=== PATIENT | female | born 1975 | race Caucasian/White ===

== ENCOUNTER 2016-03-21 20:47 | Emergency (ER) | payer OTHER ==
[~2016-03-21] VITALS: Ht 167.6 cm; Wt 73.0 kg
[~2016-03-21 20:47] MED LIST: LEVOIUD INT UTER; NITR-5 PO; OMEP20CA9 PO; OXYC-57 PO
[2016-03-21 20:54] VITALS: TEMP 36.4; Ht 167.6 cm; Wt 73.0 kg
[2016-03-21] MEDS ORDERED: QUET1TAB9 PO (21:18)
[2016-03-21] MEDS ORDERED: VNTHFA/IN INH (21:18)
[2016-03-21] MEDS ORDERED: PRED10TA (21:18)
[2016-03-21] MEDS ORDERED: LXP10 PO (21:18)
[2016-03-21] MEDS ORDERED: MEDR1INJ3 IM (21:21)
[2016-03-21] MEDS ORDERED: ACET-1256 PO (21:21)
[2016-03-21] MEDS ORDERED: IBUP-103 PO (21:21)
--- NOTE | 2016-03-21 22:44 | DIAGNOSTIC IMAGING REPORT ---
LUMBAR SPINE 5 VIEWS CLINICAL HISTORY: Chronic low back pain. FINDINGS: 5 views of the lumbar spine are compared to study dated 03/11/2014. The skeletal structures are well mineralized. There is no radiographic evidence of fracture or malalignment. Vertebral body height and alignment are maintained. The transverse and spinous processes are intact. There is no evidence of spondylolysis. The intervertebral disc spaces are well-maintained. The visualized bony pelvis appears intact. There is a nonobstructed abdominal bowel gas pattern. There is moderate colonic fecal retention. Cholestatic clips are seen in the right upper quadrant. IMPRESSION: 1. Unremarkable radiographic evaluation of the lumbosacral spine. 2. Moderate constipation. Electronically signed by: Fitz Zambrano M.D. 03/21/2016 10:42 PM Dictated Date/Time: 03/21/2016 10:41 PM
[2016-03-21] MEDS ORDERED: NORCO 5/325MG HOME PACK PO ONE (22:45)
[2016-03-21] MEDS ORDERED: HYDR-5688 PO (22:51)
[2016-03-21 22:55] VITALS: BP 154/91; PULSE 64; O2SAT 100
--- NOTE | 2016-03-22 15:01 | EMERGENCY ROOM VISIT NOTE ---
ED Visit Note First contact with patient: 21:05 Chief Complaint: Low back pain. History of Present Illness: Ms. Stnaton is a 41-year-old white female who ambulates into the ED complaining of lumbar back pain. Historically patient reports she has a history of chronic back pain and has been diagnosed with lumbar disc normal. She has been previously seen by surgery and pain management. She reports for the last few years she has been tolerating her pain easily at home with [id number] medications. She reports approximately one week ago she developed an upper respiratory tract symptoms including violent coughing and started experiencing lumbar back pain. She was seen by her primary care provider who gave her a short dose of narcotics approximately 6 days ago and was feeling better. She goes on to report approximately 3 days ago she slipped and fell while walking on ice and twisted her back. Since the fall her pain as severe. Currently she describes her pain as a stabbing sensation over the L5-S1 area with prominence on the left. She rates her discomfort 6/10. She does have radiation of pain down the posterior aspect of the left leg. Her pain worsens with all movement of the back, palpation, ambulation. She has not identified any alleviating factors related to the pain. She reports she has been using ibuprofen without relief of her discomfort. Associated with her pain she does report she has a mild tingling sensation throughout the entire left leg but no weakness. Additionally she denies at the time of the injury that she struck her head or have loss of consciousness and has had no signs of head injury, she denies fevers, chills, sweats, skin eruptions, abdominal pain, nausea, vomiting, diarrhea, constipation, rectal bleeding, black/tarry stools, urinary symptoms, hematuria, flank pain, genital/rectal paresthesias, bowel and bladder dysfunction, IV drug abuse, previous back surgeries, history of cancers. . Review of Systems: As noted above in history of present illness. All body systems were reviewed and found to be negative as noted above. Past Medical History: As noted above, GERD, bronchitis, status post cholecystectomy. Current Medications: Home Meds and Scripts Medications Dose Route/Sig Max Daily Dose Days Date Category Dose Instructions Depo-Provera Contraceptiv (Medroxyprogesterone Acetate (C) 150 Mg/Ml Inj 150 Mg IM UD 03/21/16 Reported Seroquel (Quetiapine Fumarate) 100 Mg Tab 100 Mg PO HS 03/21/16 Reported Escitalopram Oxalate 10 Mg Tab 10 Mg PO QAM 03/21/16 Reported Ventolin Hfa (Albuterol) 200 Puffs/13640 Mcg Aers 2 Puffs INH QID 03/21/16 Reported Prednisone 10 Mg Tab 03/21/16 Reported PRESCRIBED 03/14/2015 FOLLOWS: TAKE 5 TABLETS (50 MG) DAILY FOR 2 DAYS THEN, TAKE 4 TABLETS (40 MG) DAILY FOR 2 DAYS THEN, TAKE 3 TABLETS (30 MG) DAILY FOR 2 DAYS THEN, TAKE 2 TABLETS (20 MG) DAILY FOR 2 DAYS THEN, TAKE 1 TABLET (10 MG) DAILY FOR 2 DAYS. Tylenol (Acetaminophen) 500 Mg Tab 1,000 Mg PO Q6H PRN 11/11/15 Reported Advil (Ibuprofen) 200 Mg Tab 400 Mg PO Q6H PRN 11/11/15 Reported Prilosec (Omeprazole) 20 Mg Cap 20 Mg PO DAILY 01/29/15 Reported TAKE THIS MEDICATION ONE HOUR BEFORE FIRST MEAL OF THE DAY Allergies to Medications: Gabapentin, latex, penicillin, propoxyphene and tramadol. Social History: Patient is not employed; she feels safe in her home environment ; she admits to tobacco use and denies alcohol use. Physical Examination: Vital Signs: Date Time Temp Pulse Resp B/P Pulse Ox O2 Delivery O2 Flow Rate FiO2 03/21/16 22:55 64 16 154/91 100 Room Air 03/21/16 20:54 36.4 109 18 134/86 98 Room Air GENERAL: 41-year-old female in moderate distress due to pain, nontoxic-appearing , afebrile and hemodynamically stable. NEUROLOGICAL: Awake, alert and oriented to person, place and time. Answering questions appropriately and following commands. She is using a shuffling gait to control pain. Good hand eye coordination. No focal motor or sensory deficits. SKIN: Warm, dry and pink. No soft tissue eruptions or trauma noted. HEENT: Atraumatic and normocephalic. PERRLA. Sclera white and conjunctiva pink. No drainage from naris. Pharynx is nonerythematous or edematous. Speech normal. No lymphadenopathy. Trachea midline. No jugular venous distention. BACK: No tenderness over the bony cervical and thoracic spine. Moderate tenderness over the L4 through S1 area of the bony spine without bony deformity , bony crepitus, step-offs, swelling or ecchymosis. There is also mild tenderness in the left paraspinous lumbar muscles in the same location without palpable spasm. Decreased range of motion in all movements at the waist due to pain. Negative straight leg raise test. No CVA tenderness. THORAX: Lungs sounds are clear to auscultation and equal bilaterally with symmetrical chest wall. ABDOMEN: Flat, soft and nontender. Positive bowel sounds in all quadrants. No guarding, rigidity or organomegaly. EXTREMITIES: Moves all extremities well on command and with purpose. All distal neurovascular statuses are intact and equal bilaterally. No calf tenderness or cords. 2+ patellar and Achilles deep tendon reflexes intact and equal bilaterally. 4/5 muscle strength in hip flexion, extension, abduction and abduction, knee flexion and extension and ankle plantar flexion and dorsiflexion. She was able to distinguish light sensations through all dermatomes of the lower legs and feet bilaterally. ED Course: Patient is assessed as noted above. Lumbar Spine X-Rays: Were read by myself and the radiologist and shows no evidence of fracture or malalignment. Vertebral body height and alignment are maintained. Interval discs spaces are well maintained. Nonobstructive bowel gas pattern. Moderate colonic fecal retention. Patient was educated about tonight's findings and instructed on treatment plan; she verbalizes understanding and agreement with this plan. Patient's information was ran to the [place] database and no red flags for overuse or abuse of narcotics were noted. Clinical Impression: Lumbar back pain with left-sided radiculopathy. Status post fall. Disposition: Patient discharged home in stable condition; prior to departure she was reassessed and subjectively reported she was feeling slightly worse and rated her discomfort 8/10. Plan: Comfort measures were discussed with the patient including rest, ice, proper lifting and moving techniques and a sliding pain medication scale of ibuprofen, acetaminophen and [place]; appropriate precautions were discussed with the patient. Patient was encouraged to follow-up with her PCP or back specialist for definitive care and treatment. Patient is encouraged return ED for worsening/uncontrolled, leg weakness/ numbness, bowel and bladder dysfunction, genital paresthesias, fevers or any new /concerning symptoms.
== END 2016-03-21 22:55 | disposition home or self-care (01) ==
LOC: C.EDB 20:50 → C.EDD 22:55
DX: M54.16 Radiculopathy, lumbar region (principal); W19.XXXA Unspecified fall, initial encounter; K21.9 Gastro-esophageal reflux disease without esophagitis; Z90.49 Acquired absence of other specified parts of digestive tract

== ENCOUNTER 2016-06-27 20:31 | Emergency (ER) | payer OTHER ==
[~2016-06-27] VITALS: Ht 170.2 cm; Wt 79.4 kg
[~2016-06-27 20:31] MED LIST changes: +ACET-1256 PO; +HYDR-5688 PO; +IBUP-103 PO; -LEVOIUD INT UTER; +LXP10 PO; +MEDR1INJ3 IM; -NITR-5 PO; -OXYC-57 PO; +PRED10TA; +QUET1TAB9 PO; +VNTHFA/IN INH
[2016-06-27 21:00] VITALS: TEMP 36.9; Ht 170.2 cm; Wt 79.4 kg
[2016-06-27] MEDS ORDERED: CLIN300C2 PO (21:58)
[2016-06-27] MEDS ORDERED: HYDR-5688 PO (21:58)
[2016-06-27] MEDS ORDERED: CLINDAMYCIN 150MG HOME PACK PO ONE (22:00)
[2016-06-27] MEDS ORDERED: NORCO 5/325MG HOME PACK PO ONE (22:00)
--- NOTE | 2016-06-27 22:02 | EMERGENCY ROOM VISIT NOTE ---
ED Visit Note First contact with patient: 21:49 CHIEF COMPLAINT: Toothache HISTORY OF PRESENT ILLNESS: This 41-year-old female patient presented to the emergency department ambulatory with a progressive toothache for past 1 month, worsening over the past 2 days. The patient believes it is coming from her left lower wisdom tooth. She believes the tooth may be infected. The pain is now steady and severe and radiates to the face. The patient has a dentist appointment set up at the end of the month to have the tooth extracted. They rate their pain an 8/10 and the ibuprofen and Tylenol they have been taking has not relieved the pain. Denies facial swelling or fever. The patient denies any discharge from the mouth. REVIEW OF SYSTEMS: A 6 system review of systems was completed with positives and pertinent negatives listed in the HPI. ALLERGIES: See EMR MEDICATIONS: See med list PMH: Asthma, cholecystectomy SOCIAL HISTORY: The patient lives locally with family. PHYSICAL EXAM: Vitals are noted on the nurse's note and reviewed by myself. Vital signs stable. Temperature 36.9C orally. GENERAL: This is a 41-year-old female, in no acute distress, nondiaphoretic, well-developed well-nourished. Mouth: The left back molar is carious and the gum is swollen and tender around it, without any discharge or signs of an abscess. The remainder of the pharynx and tonsils are without erythema, edema, or exudate. The airway is patent. There is no facial swelling, cervical or submandibular lymphadenopathy. The patient appears uncomfortable and in pain. The patient has overall poor dental hygiene. EARS: External auditory canals clear, tympanic membranes pearly ha[place]on without erythema or effusion bilaterally. ED COURSE: The patient was evaluated as above. She will be placed on an antibiotic pending her appointment with the oral surgeon. She will be kept in a very short course of [place], but she was instructed to follow-up with her primary care provider or dentist for any further pain control. The PDMP was reviewed. The patient has received a few narcotic prescriptions in the past year, but nothing excessive. Conservative measures were discussed. She verbalized understanding of my assessment and treatment plan and was discharged home in good condition. DIAGNOSIS: Odontalgia Problem List Medical Problems: (1) Abdominal pain Status: Resolved (2) ASTHMA, UNSPECIFIED Status: Chronic (3) BIPOLAR DISORDER, UNSPECIFIED Status: Chronic (4) Bronchitis Status: Resolved (5) Bronchitis Status: Resolved (6) ESOPHAGEAL REFLUX Status: Chronic (7) Fall due to slipping on ice or snow Status: Resolved (8) HEADACHE Status: Resolved (9) Hepatitis C Status: Chronic (10) Influenza B Status: Resolved (11) Influenza B Status: Resolved (12) Low back pain Status: Resolved (13) Lumbar contusion Status: Resolved (14) Migraine headache Status: Resolved (15) Nausea & vomiting Status: Resolved (16) Ovarian cyst Status: Resolved (17) PERSONAL HISTORY OF PEPTIC ULCER DISEASE Status: Chronic (18) Pharyngitis Status: Resolved (19) Right ovarian cyst Status: Resolved (20) Right ovarian cyst Status: Resolved (21) Sore throat Status: Resolved (22) Throat pain in adult Status: Resolved (23) URI, acute Status: Resolved (24) Work related injury Status: Resolved Surgical Problems: (1) Cholecystectomy Status: Resolved Current/Historical Medications Scheduled Albuterol Hfa (Ventolin Hfa), 2 PUFFS INH QID Clindamycin Hcl (Cleocin), 300 MG PO QID Escitalopram Oxalate (Escitalopram Oxalate), 10 MG PO QAM Medroxyprogesterone Acetate (C (Depo-Provera Contraceptiv), 150 MG IM UD Omeprazole (Prilosec), 20 MG PO DAILY Quetiapine Fumarate (Seroquel), 100 MG PO HS Scheduled PRN Acetaminophen (Tylenol), 1,000 MG PO Q6H PRN for Pain Hydrocodone/Acetaminophen 5MG/325MG ([place] 5MG/325MG), 1-2 TABLET PO Q6H PRN for Pain Hydrocodone/Acetaminophen 5MG/325MG ([place] 5MG/325MG), 1-2 TABLET PO Q4H PRN for Pain Ibuprofen Tab (Advil), 400 MG PO Q6H PRN for Pain Miscellaneous Medications Prednisone (Prednisone) Allergies Coded Allergies: Gabapentin (Verified Allergy, Unknown, Nausea/Vomiting, 11/11/15) Latex1 -Allergic Contact Dermititis (Verified Allergy, Unknown, RASH, 11/10) Penicillins (Verified Allergy, Unknown, ., 11/11/15) Tramadol (Verified Adverse Reaction, Intermediate, N/V, 11/11/15) Propoxyphene (Verified Adverse Reaction, Mild, NAUSEA AND VOMITING, ) Vital Signs Date Time Temp Pulse Resp B/P Pulse Ox O2 Delivery O2 Flow Rate FiO2 06/27/16 22:34 81 18 144/88 98 Room Air 06/27/16 21:00 36.9 87 19 141/87 97 Room Air Medications Administered Medications (Trade) Dose Ordered Sig/Herbert Route Start Time Stop Time Status Last Admin Dose Admin Clindamycin HCl (Cleocin 150MG Home Pack) 1 homepack UD ONCE PO 06/27/16 22:00 06/27/16 22:01 DC 06/27/16 22:30 1 HOMEPACK Acetaminophen/ Hydrocodone Bitart ([place] 5/325mg Home Pack) 1 homepack UD ONCE PO 06/27/16 22:00 06/27/16 22:01 DC 06/27/16 22:31 1 HOMEPACK Departure Information Impression Primary Impression: Dental caries Dispostion Home / Self-Care Condition GOOD Prescriptions Hydrocodone/Acetaminophen 5MG/325MG ([place] 5MG/325MG) Tab 1-2 TABLET PO Q4H Y for Pain, #8 TAB For Initial Treatment Prov: Julia Dodge PA-C 06/27/16 Clindamycin Hcl (CLEOCIN) 300 Mg Cap 300 MG PO QID for 10 Days, #40 CAP Prov: Julia Dodge PA-C 06/27/16 Referrals No Doctor, Assigned (PCP) Patient Instructions [facility] Additional Instructions You have been treated in the Emergency Department for Dental Pain. You have been prescribed [place] to be used for pain control. This is a narcotic medication. You cannot drive or consume alcohol while on this medicine. This medicine should only be used for pain that cannot be controlled with over-the- counter pain medicines. You were prescribed, clindamycin to be taken 4 times daily as prescribed. This is an antibiotic. All antibiotics have the potential to cause diarrhea. Stop this medication and contact a medical provider if you were to develop any significant adverse side effects including: wheezing, shortness of breath, passing out, vomiting, or a diffuse rash. Always take antibiotics as directed and COMPLETE the ENTIRE course regardless of the improvement of your symptoms. For pain control, you can use the following [id number] medicines (if >12 yo): - Regular strength (325mg/tab) Tylenol (acetaminophen) 2 tabs every 4-6 hours as needed. Do not exceed 12 tablets in a 24 hour period. Avoid taking more than 4 grams (4000 mg) of Tylenol per day. This includes any other sources of acetaminophen you may take on a regular basis. - Regular strength (200 mg/tab) Advil (ibuprofen) 1-2 tabs every 4-6 hours as needed. Do not exceed a dose of 3200 mg per day. Refrain from smoking cigarettes or using chewing tobacco until you have been evaluated by your dentist. Keeping beverages lukewarm and consuming soft foods can decrease your pain. Warm compresses over the affected area may offer some relief. You MUST seek evaluation of your dental pain by a dentist following your visit to the Emergency Department. The Emergency Department is not capable of treating dental issues long-term. You should call your dentist as soon as possible to make an appointment for evaluation of your dental pain. Return to the emergency department if you develop the following symptoms despite treatment course outlined above: fever, intractable pain, increased redness, swelling, or purulent discharge.
[2016-06-27 22:34] VITALS: BP 144/88; PULSE 81; O2SAT 98
== END 2016-06-27 22:36 | disposition home or self-care (01) ==
LOC: C.EDB 20:32 → C.EDD 22:36
DX: K02.9 Dental caries, unspecified (principal); J45.909 Unspecified asthma, uncomplicated; Z90.49 Acquired absence of other specified parts of digestive tract; F31.9 Bipolar disorder, unspecified; K21.9 Gastro-esophageal reflux disease without esophagitis; B19.20 Unspecified viral hepatitis C without hepatic coma; Z79.899 Other long term (current) drug therapy

== ENCOUNTER 2016-08-21 22:15 | Emergency (ER) | payer OTHER ==
[~2016-08-21] VITALS: Ht 167.6 cm; Wt 81.9 kg
[2016-08-21 22:18] VITALS: TEMP 36.9; Ht 167.6 cm; Wt 81.9 kg
[2016-08-21] MEDS ORDERED: ESCI1TAB6 PO (22:33)
[2016-08-21] MEDS ORDERED: SRQ/200 PO (22:33)
[2016-08-21] MEDS ORDERED: CLIN300C2 PO (22:41)
[2016-08-21] MEDS ORDERED: OXYC1TAB3 PO (22:41)
[2016-08-21] MEDS ORDERED: CLINDAMYCIN 150MG HOME PACK PO ONE (22:45)
[2016-08-21] MEDS ORDERED: OXYCODONE IR HOME PACK PO ONE (22:45)
[2016-08-21 22:57] VITALS: BP 135/83; PULSE 87; O2SAT 98
--- NOTE | 2016-08-22 02:57 | EMERGENCY ROOM VISIT NOTE ---
History First contact with patient: 22:26 Chief Complaint: DENTAL PAIN Stated Complaint: RT FRONT TOOTH ABCESSED Nursing Triage Summary: abcess on bottom gums-pain started yesterday History of Present Illness The patient is a 41 year old female who presents to the Emergency Room with complaints of dental pain for the past few days who is going to call her dentist tomorrow. Patient discussed pain as aching, ranging in severity 7 out of 10 worse with chewing better with rest. No relief with Orajel. Patient denies chest pain, dyspnea, fever, chills, facial swelling, dysphagia, sore throat, neck stiffness, headache, cough, congestion. She is tolerating by mouth fluids and food. Review of Systems See HPI for pertinent positives & negatives. A total of 10 systems reviewed and were otherwise negative. Past Medical/Surgical History Medical Problems: (1) Abdominal pain (2) ASTHMA, UNSPECIFIED (3) BIPOLAR DISORDER, UNSPECIFIED (4) Bronchitis (5) Bronchitis (6) ESOPHAGEAL REFLUX (7) Fall due to slipping on ice or snow (8) HEADACHE (9) Hepatitis C (10) Influenza B (11) Influenza B (12) Low back pain (13) Lumbar contusion (14) Migraine headache (15) Nausea & vomiting (16) Ovarian cyst (17) PERSONAL HISTORY OF PEPTIC ULCER DISEASE (18) Pharyngitis (19) Right ovarian cyst (20) Right ovarian cyst (21) Sore throat (22) Throat pain in adult (23) URI, acute (24) Work related injury Surgical Problems: (1) Cholecystectomy Family History Diabetes mellitus FH: cancer Kidney disease Kidney stones Social History Smoking Status: Current Every Day Smoker Alcohol Use: none Marital Status: single Housing Status: lives alone Occupation Status: employed Current/Historical Medications Scheduled Albuterol Hfa (Ventolin Hfa), 2 PUFFS INH QID Clindamycin Hcl (Cleocin), 300 MG PO QID Escitalopram Oxalate (Escitalopram Oxalate), 10 MG PO QAM Escitalopram Oxalate (Lexapro), 5 MG PO DAILY Omeprazole (Prilosec), 20 MG PO DAILY Quetiapine Fumarate (Seroquel), 1 TAB PO HS Scheduled PRN Acetaminophen (Tylenol), 1,000 MG PO Q6H PRN for Pain Ibuprofen Tab (Advil), 400 MG PO Q6H PRN for Pain Oxycodone Immediate Rel Tab (Roxicodone Ir), 1-2 TAB PO Q4H PRN for Severe Pain Allergies Coded Allergies: Gabapentin (Verified Allergy, Unknown, Nausea/Vomiting, 08/21/16) Latex1 -Allergic Contact Dermititis (Verified Allergy, Unknown, RASH, 08/21) Penicillins (Verified Allergy, Unknown, ., 08/21/16) Tramadol (Verified Adverse Reaction, Intermediate, N/V, 08/21/16) Propoxyphene (Verified Adverse Reaction, Mild, NAUSEA AND VOMITING, ) Physical Exam Vital Signs Date Time Temp Pulse Resp B/P (MAP) Pulse Ox O2 Delivery O2 Flow Rate FiO2 08/21/16 22:57 87 16 135/83 98 08/21/16 22:18 36.9 87 18 118/83 95 Room Air Pain Rating (0-10): 8.0 Physical Exam VITALS: Vitals are noted on the nurse's note and reviewed by myself. Vital signs stable. GENERAL: Pleasant female, in no acute distress, nondiaphoretic, well-developed well-nourished. SKIN: The skin was without rashes, erythema, edema, or bruising. There is no tenting of the skin. Capillary reflex less than 2 seconds. HEAD: Normocephalic atraumatic. EARS: External auditory canals clear, tympanic membranes pearly hairston without erythema or effusion bilaterally. EYES: Pupils equal round and reactive to light and accommodation. Conjunctivae without injection, sclerae without icterus. Extraocular movements intact. NOSE: Patent, turbinates without inflammation or discharge. No sinus tenderness. MOUTH: Mucous membranes moist. No Qasim's angina Pharynx without erythema or exudate. Uvula midline. Airway patent. Tongue does not deviate. Dental exam: Extensive plaque buildup with minimal dental decay with no palpable abscess with a few missing teeth NECK: Supple without nuchal rigidity. No lymphadenopathy. No thyromegaly. Cervical spine is nontender. No JVD. No meningeal signs HEART: Regular rate and rhythm without murmurs gallops or rubs. LUNGS: Clear to auscultation bilaterally without wheezes, rales or rhonchi. No dullness to percussion. No retractions or accessory muscle use. ABDOMEN: Positive bowel sounds x 4. Normal tympanic percussion. Soft, nontender, without masses or organomegaly. Baptiste sign negative. No guarding or rebound tenderness. MUSCULOSKELETAL: No muscle atrophy, erythema, or edema noted. NEURO: Patient was alert and oriented to person place and time. Normal sensation to light and sharp touch. No focal neurological deficits. Medical Decision & Procedures Medications Administered Medications (Trade) Dose Ordered Sig/Herbert Route Start Time Stop Time Status Last Admin Dose Admin Clindamycin HCl (Cleocin 150MG Home Pack) 1 homepack UD ONCE PO 08/21/16 22:45 08/21/16 22:46 DC 08/21/16 22:56 1 HOMEPACK Oxycodone HCl (Roxicodone Immediate Rel 5MG Home Pack) 1 homepack UD ONCE PO 08/21/16 22:45 08/21/16 22:46 DC 08/21/16 22:55 1 HOMEPACK ED Course Prior records reviewed and summarized as above. Triage Nursing notes reviewed. The patient's history was concerning for dental pain. Differential diagnosis: Etiologies such as cellulitis, abscess, Qasim angina, gingivitis, as well as others were entertained.. Physical examination: The physical examination was consistent with dental pain and dental caries ER treatment provided: Cleocin, home pack of OxyIR On reassessment the patient felt better. Diagnostics interpreted by me: Deferred This appears to be isolated dental pain from dental caries. Patient had no palpable abscess. No signs of Qasim angina. No airway compromise. She was counseled on proper dental hygiene and verbalized understanding of this. She is advised to follow-up with dentistry for definitive care here in the ER sooner for facial swelling, fevers, worsening signs or symptoms or as needed. By the evaluation outlined above emergent etiologies such as abscess, Qasim angina as well as others were deemed relatively unlikely. The pt informed about the findings as listed above. All questions were answered and pleased with the treatment. Return instructions were outlined and the patient was discharged in stable condition. Outpatient prescription management: Cleocin, OxyIR Referral: The patient was referred back to dentist for follow-up in 2 to 3 days for a recheck of the current condition. Medical Decision As above [place] Drug Monitoring Program Search Results: patient reviewed within database, see additional documentation (patient had a few recent narcotic scripts) Impression Primary Impression: Pain, dental Additional Impression: Dental caries Departure Information Dispostion Home / Self-Care Condition FAIR Prescriptions Oxycodone Immediate Rel Tab (ROXICODONE IR) 5 Mg Tab 1-2 TAB PO Q4H Y for Severe Pain, #10 TAB Prov: Aminah James PA-C 08/21/16 Clindamycin Hcl (CLEOCIN) 300 Mg Cap 300 MG PO QID for 10 Days, #40 CAP Prov: Aminah James PA-C 08/21/16 Forms HOME CARE DOCUMENTATION FORM, IMPORTANT VISIT INFORMATION Patient Instructions Visit Dental, [facility] Additional Instructions Clindamycin 150mg: Take one pill 4 times daily for 10 days for your infection. Take with food, but avoid dairy. Avoid prolonged sun exposure since this medication makes you temporarily more susceptible to sunburns. All antibiotics can cause diarrhea. If this occurs and you feel worse or it does not resolve in 1-2 days follow up with your doctor or return to the Emergency Department as this could be signs of serious underlying problems. Any medication can cause an allergic reaction, stop the pills immediately and return to the ER for rash, hives, breathing difficulties, or swelling. Oxycodone (OxyIR) 5mg: Take 1-2 pills every four hours for breakthrough pain. Avoid alcohol, operating machinery or dangerous equipment, working on ladders or roofs, DRIVING, or situations where being under the influence may be dangerous. It is recommended to use an kekk-jnx-xykepsc stool softener such as Colace, 100mg twice daily while taking this medication to avoid constipation. Ibuprofen(Motrin, Advil) may be used for fever or pain. Use 600mg every six hours as needed. Take with food. Avoid using more than 2400mg in a 24 hour period. Do not use 2400mg per day for more than three consecutive days without physician direction. Prolonged inappropriate use can lead to stomach upset or ulcers. This medication can be taken if you need to drive, work, or perform activities which may be dangerous when taking narcotic pain medication. (AND/OR) Acetaminophen(Tylenol) may be used for fever or pain. Use 1000mg every six hours as needed. Avoid using more than 3000mg in a 24 hour period. This medication can be taken if you need to drive, work, or perform activities which may be dangerous when taking narcotic pain medication. [place] teeth twice a day, floss daily and do warm saltwater gargles 3 times a day. See a dentist as soon as possible for definitive care for your dental problem. Return to ER sooner for facial swelling, fever, redness, worsening signs or symptoms or as needed. Problem Qualifiers
== END 2016-08-21 22:58 | disposition home or self-care (01) ==
LOC: C.EDB 22:15 → C.EDC 22:58
DX: K08.89 Other specified disorders of teeth and supporting structures (principal); K02.9 Dental caries, unspecified; F31.9 Bipolar disorder, unspecified; Z79.899 Other long term (current) drug therapy; F17.210 Nicotine dependence, cigarettes, uncomplicated

== ENCOUNTER 2016-12-16 17:24 | Emergency (ER) | payer OTHER ==
[~2016-12-16] VITALS: Ht 170.2 cm; Wt 78.8 kg
[~2016-12-16 17:24] MED LIST changes: +ESCI1TAB6 PO; -HYDR-5688 PO; -MEDR1INJ3 IM; +OXYC1TAB3 PO; -PRED10TA; -QUET1TAB9 PO; +SRQ/200 PO
[2016-12-16 17:29] VITALS: BP 145/90; PULSE 102; TEMP 36.8; O2SAT 95; Ht 170.2 cm; Wt 78.8 kg
[2016-12-16] MEDS ORDERED: CEPH500C2 PO (18:09)
[2016-12-16] MEDS ORDERED: HYDR-5688 PO (18:09)
[2016-12-16] MEDS ORDERED: SULF800T23 PO (18:09)
--- NOTE | 2016-12-17 16:14 | EMERGENCY ROOM VISIT NOTE ---
ED Visit Note First contact with patient: 17:52 Chief Complaint: I think I have a spider bite on my abdomen. History of Present Illness: Ms. Stanton is a 41-year-old white female who ambulates into the ED complaining of a possible spider bite to the abdomen. Patient reports she was camping last week. She reports 6 days ago when she awoke from sleep she noted a small red faby with what she felt was 2 puncture wounds in the left upper quadrant. She reports initially there was no discomfort. Over the last 6 days progressed she has noted some mild redness and in the central portion of the redness there is been a small amount of purulent drainage. She also reports he has noted an increasing amount of pain in the area. She describes the pain as a burning sensation. Her pain worsens with palpation. She rates her discomfort 8/10. She has not identified any alleviating factors related to the pain. She has not taken any medications for pain prior to arrival at the hospital. This did with her pain she reports she feels like she's had a decreased appetite and intermittently she has been having chills but has not the find any ce fever. She reports she has been washing her wound with soap and water. She denies other skin eruptions, skin color changes, headache, dizziness, lightheadedness, neck pain/stiffness, upper respiratory tract symptoms, cough, wheezing, other abdominal pain, nausea, vomiting, back/flank pain. Review of Systems: As noted above in history of present illness. 8 body systems were reviewed and found to be negative as noted above. Past Medical History: Bronchitis, status post cholecystectomy. Current Medications: Prilosec, ibuprofen, Tylenol, albuterol, Lexapro, Seroquel. Allergies to Medications: Penicillin, gabapentin, propoxyphene, tramadol, latex. Social History: Patient is not employed; she feels safe in her home environment ; she admits to tobacco use and denies alcohol use. Physical Examination: Vital Signs: Date Time Temp Pulse Resp B/P (MAP) Pulse Ox O2 Delivery O2 Flow Rate FiO2 12/16/16 17:29 36.8 102 20 145/90 95 Room Air GENERAL: 41-year-old female in mild to moderate distress due to pain, nontoxic- appearing, afebrile and hemodynamically stable. NEUROLOGICAL: Awake, alert and oriented to person, place and time. Answering questions appropriately and following commands. Normal gait. Good hand eye coordination. No focal motor sensory deficits. SKIN: Warm, dry and pink. Abdomen: Over the left upper quadrant patient has a nickel-sized area of erythema and in the central portion of this area there is a 2 mm pustule. No local lymphangitis. No drainage from her wound. HEENT: Atraumatic and normocephalic. THORAX: Lungs sounds are clear to auscultation and equal bilaterally with symmetrical chest wall. ABDOMEN: Soft tissue lesion as noted above. Flat and soft tenderness in the area of her lesion. Although there is erythema there is no warmth around the lesion. This lesion is neither indurated or fluctuant. No palpable abscesses were identified. I did not appreciate any possible bite orosco as noted by the patient. The small pustule is not draining. Positive bowel sounds in all quadrants. No guarding, rigidity or organomegaly. EXTREMITIES: Moves all extremities well on command and with purpose. ED Course: Patient is assessed as noted above. Patient was educated about today's findings and instructed on her treatment plan ; she verbalized understanding and agreement with this plan. Clinical Impression: Skin pustule. Disposition: Patient discharged home in stable condition; prior to departure she was reassessed and subjectively reported she was feeling the same. Plan: Patient was prescribed Keflex 500 mg 4 times a day and Bactrim DS 2 times a day for 10 days. Patient was placed on a sliding pain scale of ibuprofen, acetaminophen and [place] ; she was given appropriate narcotic questions in any was checked in the state database and no red flags were noted. Patient was encouraged to continue to wash this area with soap and water and cover with a small amount of antibiotic dressing. Patient was encouraged use warm compresses over the area 4-5 times a day for 20 minutes. Patient was encouraged not to squeeze or pick at her skin lesion. Patient was educated on signs of worsening infection. Patient was encouraged to follow-up with primary care provider for recheck in 36 -48 hours. Patient was encouraged return ED for worsening/uncontrolled pain, uncontrolled swelling, fevers or any new/concerning symptoms.
== END 2016-12-16 18:21 | disposition home or self-care (01) ==
LOC: C.EDB 17:25 → C.EDD 18:21
DX: L08.9 Local infection of the skin and subcutaneous tissue, unspecified (principal); F17.200 Nicotine dependence, unspecified, uncomplicated

== ENCOUNTER 2017-02-28 03:09 | Emergency (ER) | payer OTHER ==
[~2017-02-28] VITALS: Ht 170.2 cm; Wt 80.1 kg
[~2017-02-28 03:09] MED LIST changes: +HYDR-5688 PO; -LXP10 PO; -OMEP20CA9 PO; -OXYC1TAB3 PO; -VNTHFA/IN INH
[2017-02-28 03:15] VITALS: TEMP 36.4; Ht 170.2 cm; Wt 80.1 kg
[2017-02-28] MEDS ORDERED: OXYCODONE IR HOME PACK PO ONE (03:30)
[2017-02-28] MEDS ORDERED: CLIN150C PO (03:30)
[2017-02-28] MEDS ORDERED: CLINDAMYCIN 150MG HOME PACK PO ONE (03:30)
[2017-02-28] MEDS ORDERED: OXYC-737 PO (03:30)
--- NOTE | 2017-02-28 03:34 | EMERGENCY ROOM VISIT NOTE ---
History First contact with patient: 03:19 Chief Complaint: FACIAL PAIN/INJURY Stated Complaint: LEFT JAW HURTS History of Present Illness The patient is a 42 year old female who presents to the Emergency Room with complaints of left lower jaw and dental pain for the past few days. Patient describes the pain as aching, ranging in severity 7 out of 10 worse with chewing better with rest. It does not radiate. Patient denies chest pain, dyspnea, fever, chills, facial swelling, dysphagia, sore throat, neck stiffness , headache, cough, congestion. She is tolerating by mouth fluids and food. She sees a dentist in [place]. Review of Systems See HPI for pertinent positives & negatives. A total of 10 systems reviewed and were otherwise negative. Past Medical/Surgical History Medical Problems: (1) Abdominal pain (2) ASTHMA, UNSPECIFIED (3) BIPOLAR DISORDER, UNSPECIFIED (4) Bronchitis (5) Bronchitis (6) ESOPHAGEAL REFLUX (7) Fall due to slipping on ice or snow (8) HEADACHE (9) Hepatitis C (10) Influenza B (11) Influenza B (12) Low back pain (13) Lumbar contusion (14) Migraine headache (15) Nausea & vomiting (16) Ovarian cyst (17) PERSONAL HISTORY OF PEPTIC ULCER DISEASE (18) Pharyngitis (19) Right ovarian cyst (20) Right ovarian cyst (21) Sore throat (22) Throat pain in adult (23) URI, acute (24) Work related injury Surgical Problems: (1) Cholecystectomy Family History Diabetes mellitus FH: cancer Kidney disease Kidney stones Social History Smoking Status: Current Every Day Smoker Alcohol Use: none Marital Status: single Housing Status: lives alone Occupation Status: employed Current/Historical Medications Scheduled Albuterol Hfa (Ventolin Hfa), 2 PUFFS INH QID Clindamycin Hcl (Cleocin), 150 MG PO QID Escitalopram Oxalate (Escitalopram Oxalate), 10 MG PO QAM Escitalopram Oxalate (Lexapro), 5 MG PO DAILY Omeprazole (Prilosec), 20 MG PO DAILY Quetiapine Fumarate (Seroquel), 1 TAB PO HS Scheduled PRN Acetaminophen (Tylenol), 1,000 MG PO Q6H PRN for Pain Hydrocodone/Acetaminophen 5MG/325MG ([place] 5MG/325MG), 1-2 TABLET PO Q6H PRN for Pain Ibuprofen Tab (Advil), 400 MG PO Q6H PRN for Pain Oxycodone Immediate Rel Tab (Roxicodone Ir), 1-2 TAB PO Q4H PRN for Severe Pain Physical Exam Vital Signs Date Time Temp Pulse Resp B/P (MAP) Pulse Ox O2 Delivery O2 Flow Rate FiO2 02/28/17 03:15 36.4 82 18 130/75 98 Room Air Physical Exam VITALS: Vitals are noted on the nurse's note and reviewed by myself. Vital signs stable. GENERAL: Pleasant female, in no acute distress, nondiaphoretic, well-developed well-nourished. SKIN: The skin was without rashes, erythema, edema, or bruising. There is no tenting of the skin. Capillary reflex less than 2 seconds. HEAD: Normocephalic atraumatic. EARS: External auditory canals clear, tympanic membranes pearly hairston without erythema or effusion bilaterally. EYES: Pupils equal round and reactive to light and accommodation. Conjunctivae without injection, sclerae without icterus. Extraocular movements intact. NOSE: Patent, turbinates without inflammation or discharge. No sinus tenderness. MOUTH: Mucous membranes moist. No Qasim's angina Pharynx without erythema or exudate. Uvula midline. Airway patent. Tongue does not deviate. Dental exam: Extensive plaque buildup with minimal dental decay with no palpable abscess with a few missing teeth NECK: Supple without nuchal rigidity. No lymphadenopathy. No thyromegaly. Cervical spine is nontender. No JVD. No meningeal signs HEART: Regular rate and rhythm LUNGS: Clear to auscultation bilaterally without wheezes, rales or rhonchi. No dullness to percussion. No retractions or accessory muscle use. ABDOMEN: Positive bowel sounds x 4. Normal tympanic percussion. Soft, nontender, without masses or organomegaly. Baptiste sign negative. No guarding or rebound tenderness. MUSCULOSKELETAL: No muscle atrophy, erythema, or edema noted. NEURO: Patient was alert and oriented to person place and time. Normal sensation to light and sharp touch. No focal neurological deficits. Medical Decision & Procedures ED Course Prior records reviewed and summarized as above. Triage Nursing notes reviewed. The patient's history was concerning for dental pain. Differential diagnosis: Etiologies such as cellulitis, abscess, dental cavity, Qasim angina, gingivitis , as well as others were entertained.. Physical examination: The physical examination was consistent with dental pain and dental caries ER treatment provided: Cleocin, home pack of OxyIR On reassessment the patient felt better. Diagnostics interpreted by me: Deferred This appears to be isolated dental pain from dental caries. Patient had no palpable abscess. No signs of Qasim angina. No airway compromise. She was counseled on proper dental hygiene and verbalized understanding of this. She is advised to follow-up with dentistry for definitive care here in the ER sooner for facial swelling, fevers, worsening signs or symptoms or as needed. By the evaluation outlined above emergent etiologies such as abscess, Qasim angina as well as others were deemed relatively unlikely. The pt informed about the findings as listed above. All questions were answered and pleased with the treatment. Return instructions were outlined and the patient was discharged in stable condition. Outpatient prescription management: Cleocin, OxyIR Referral: The patient was referred back to dentist for follow-up in 2 to 3 days for a recheck of the current condition. Medical Decision As above [place] Drug Monitoring [place] Search Results: patient reviewed within database, see additional documentation (no recent narcotic prescription) Medication Reconcilliation Current Medication List: was personally reviewed by me Blood Pressure Screening Patient's blood pressure: Normal blood pressure Impression Primary Impression: Dental caries Additional Impression: Pain, dental Departure Information Dispostion Home / Self-Care Condition GOOD Prescriptions Oxycodone Immediate Rel Tab (ROXICODONE IR) 5 Mg Tab 1-2 TAB PO Q4H Y for Severe Pain, #10 TAB initial course Prov: Aminah James PA-C 02/28/17 Clindamycin Hcl (CLEOCIN) 150 Mg Cap 150 MG PO QID for 9 Days, #36 CAP Prov: Aminah James .JIN 02/28/17 Forms HOME CARE DOCUMENTATION FORM, IMPORTANT VISIT INFORMATION Patient Instructions [facility], ED Tooth Pain, ED [facility] Additional Instructions Clindamycin 150mg: Take one pill 4 times daily for 10 days for your infection. Take with food, but avoid dairy. Avoid prolonged sun exposure since this medication makes you temporarily more susceptible to sunburns. All antibiotics can cause diarrhea. If this occurs and you feel worse or it does not resolve in 1-2 days follow up with your doctor or return to the Emergency Department as this could be signs of serious underlying problems. Any medication can cause an allergic reaction, stop the pills immediately and return to the ER for rash, hives, breathing difficulties, or swelling. Oxycodone (OxyIR) 5mg: Take 1-2 pills every four hours for breakthrough pain. Avoid alcohol, operating machinery or dangerous equipment, working on ladders or roofs, DRIVING, or situations where being under the influence may be dangerous. It is recommended to use an snuz-sdm-rrdvidu stool softener such as Colace, 100mg twice daily while taking this medication to avoid constipation. Ibuprofen(Motrin, Advil) may be used for fever or pain. Use 600mg every six hours as needed. Take with food. Avoid using more than 2400mg in a 24 hour period. Do not use 2400mg per day for more than three consecutive days without physician direction. Prolonged inappropriate use can lead to stomach upset or ulcers. This medication can be taken if you need to drive, work, or perform activities which may be dangerous when taking narcotic pain medication. (AND/OR) Acetaminophen(Tylenol) may be used for fever or pain. Use 1000mg every six hours as needed. Avoid using more than 3000mg in a 24 hour period. This medication can be taken if you need to drive, work, or perform activities which may be dangerous when taking narcotic pain medication. [place] teeth twice a day, floss daily and do warm saltwater gargles 3 times a day. See a dentist as soon as possible for definitive care for your dental problem. Return to ER sooner for facial swelling, fever, redness, worsening signs or symptoms or as needed. Problem Qualifiers
[2017-02-28 03:47] VITALS: BP 116/76; PULSE 76; O2SAT 97
[2017-08-23] MEDS ORDERED: SIME80CH PO (11:04)
[2017-09-15] MEDS ORDERED: CLC100 PO (13:11)
[2017-09-15] MEDS ORDERED: OXYC-57 PO (13:11)
[2017-09-15] MEDS ORDERED: MTR600X PO (13:11)
[2017-09-15] MEDS ORDERED: ACET-1047 OR (13:11)
[2017-09-15] MEDS ORDERED: MYL80 PO (13:11)
[2017-09-29] MEDS ORDERED: LAMO25TA PO (03:34)
[2017-09-29] MEDS ORDERED: MONT1TAB3 PO (03:34)
[2017-09-29] MEDS ORDERED: IBUP-1450 PO (11:04)
[2017-09-29] MEDS ORDERED: OMEP20CA9 PO (14:38)
== END 2017-02-28 03:47 | disposition home or self-care (01) ==
LOC: C.EDB 03:10
DX: K02.9 Dental caries, unspecified (principal); K08.89 Other specified disorders of teeth and supporting structures; B19.20 Unspecified viral hepatitis C without hepatic coma; K21.9 Gastro-esophageal reflux disease without esophagitis; F31.9 Bipolar disorder, unspecified; N83.201 Unspecified ovarian cyst, right side; J45.909 Unspecified asthma, uncomplicated; F17.200 Nicotine dependence, unspecified, uncomplicated; Z91.81 History of falling; Z87.11 Personal history of peptic ulcer disease; Z90.49 Acquired absence of other specified parts of digestive tract; Z79.899 Other long term (current) drug therapy; Z83.3 Family history of diabetes mellitus; Z80.9 Family history of malignant neoplasm, unspecified; Z84.1 Family history of disorders of kidney and ureter

== ENCOUNTER 2017-03-19 19:46 | Emergency (ER) | payer OTHER ==
[~2017-03-19] VITALS: Ht 170.2 cm; Wt 80.7 kg
[~2017-03-19 19:46] MED LIST changes: -HYDR-5688 PO; +LAMO25TA PO; +LXP10 PO; +MONT1TAB3 PO; +OMEP20CA9 PO; +OXYC1TAB3 PO; -SRQ/200 PO; +VNTHFA/IN INH
[2017-03-19 20:00] VITALS: TEMP 36.7; Ht 170.2 cm; Wt 80.7 kg
[2017-03-19] MEDS ORDERED: KETOROLAC TROMETHAMINE 30 MG/ML VIAL IV STA (20:20)
[2017-03-19] MEDS ORDERED: CYCLOBENZAPRINE HCL 10 MG TAB PO STA (20:20)
[2017-03-19] MEDS ORDERED: METR-162 PO (20:34)
--- NOTE | 2017-03-19 20:34 | EMERGENCY ROOM VISIT NOTE ---
History Report prepared by Sveta: Tamanna Stiles Under the Supervision of: Dr. Rachel Us M.D. First contact with patient: 20:07 Chief Complaint: ILLNESS Stated Complaint: NECK AND RECTUM PAIN History of Present Illness The patient is a 42 year old female who presents to the Emergency Room with complaints of persistent rectal pain since yesterday. The patient states that when she has a bowel movement she experiences pain from her groin that radiates to her abdomen. She notes that she could hardly walk yesterday from the abdominal pain. She currently rates her pain an 8/10 in severity. She reports that her stools are fully formed and she denies any diarrhea. The patient states that when she wiped she noticed brownish puss. She denies any history of rectal pain in the past. The patient also reports neck pain and stiffness. She states that she was recently seen in the ED for tooth pain and two days later began experiencing neck pain. She states the pain is more towards the back of her neck and on the left side. She notes there is pain with rotation. She notes the tooth pain is resolved and she is expected to have four teeth extracted soon. The patient is currently taking antibiotics. The patient is a current smoker. Source of History: patient Onset: yesterday Position: other (global ) Symptom Intensity: 8/10 Quality: other (rectal pain) Timing: other (persistent) Associated Symptoms: + neck pain (and neck stiffness), + abdominal pain ( rectal pain radiating to abdomen), No diarrhea Review of Systems See HPI for pertinent positives & negatives. A total of 10 systems reviewed and were otherwise negative. Past Medical & Surgical Medical Problems: (1) Abdominal pain (2) ASTHMA, UNSPECIFIED (3) BIPOLAR DISORDER, UNSPECIFIED (4) Bronchitis (5) Bronchitis (6) ESOPHAGEAL REFLUX (7) Fall due to slipping on ice or snow (8) HEADACHE (9) Hepatitis C (10) Influenza B (11) Influenza B (12) Low back pain (13) Lumbar contusion (14) Migraine headache (15) Nausea & vomiting (16) Ovarian cyst (17) PERSONAL HISTORY OF PEPTIC ULCER DISEASE (18) Pharyngitis (19) Right ovarian cyst (20) Right ovarian cyst (21) Sore throat (22) Throat pain in adult (23) URI, acute (24) Work related injury Surgical Problems: (1) Cholecystectomy Family History Diabetes mellitus FH: cancer Kidney disease Kidney stones Social History Smoking Status: Current Every Day Smoker Alcohol Use: none Marital Status: single Housing Status: lives alone Occupation Status: employed Current/Historical Medications Scheduled Escitalopram Oxalate (Escitalopram Oxalate), 10 MG PO QAM Escitalopram Oxalate (Lexapro), 5 MG PO DAILY Lamotrigine (Lamictal), 75 MG PO BID Metronidazole (Flagyl), 500 MG PO BID Montelukast Sodium (Singulair), 10 MG PO DAILY Omeprazole (Prilosec), 20 MG PO DAILY Scheduled PRN Albuterol Hfa (Ventolin Hfa), 2 PUFFS INH QID PRN for Shortness of Breath Cyclobenzaprine Hcl (Flexeril), 5 MG PO TID PRN for Muscle Spasms Allergies Coded Allergies: Gabapentin (Verified Allergy, Unknown, Nausea/Vomiting, 02/28/17) Latex1 -Allergic Contact Dermititis (Verified Allergy, Unknown, RASH, ) Penicillins (Verified Allergy, Unknown, ., 02/28/17) Tramadol (Verified Adverse Reaction, Intermediate, N/V, 02/28/17) Propoxyphene (Verified Adverse Reaction, Mild, NAUSEA AND VOMITING, 02/28/17 ) Physical Exam Vital Signs Date Time Temp Pulse Resp B/P (MAP) Pulse Ox O2 Delivery O2 Flow Rate FiO2 03/19/17 22:45 67 16 134/76 98 03/19/17 21:30 62 18 115/76 96 Room Air 03/19/17 20:00 36.7 75 16 142/90 96 Room Air Physical Exam Vital signs reviewed. General: Well-appearing, in no significant distress. HEENT: No scleral icterus, PERRLA, neck supple, tender to palpation of left cervical paraspinous muscles. Atraumatic. No acute infectious findings of the mouth. Cardiovascular: Regular rate and rhythm, no extra sounds. Pulmonary: Clear to auscultation bilaterally, normal work of breathing. Abdomen: Soft, diffuse non-specific lower abdominal tenderness, no rebound, no guarding, nondistended, positive bowel sounds. Rectal: Normal external mucosa. No palpable mass. No fluctuance, no discharge, no blood, no stool appreciated in the vault. Musculoskeletal: Atraumatic, no peripheral edema. Some discomfort with rotational movement of the neck, primarily along the left side. There is no tenderness along the cervical spine to palpation. No meningeal signs. Neurologic: Patient awake alert and oriented x 3 Skin: Warm, dry, no rash Medical Decision & Procedures Laboratory Results 03/19/17 20:37 Red Blood Count 4.39, Mean Corpuscular Volume 96.4, Mean Corpuscular Hemoglobin 33.0, Mean Corpuscular Hemoglobin Concent 34.3, Mean Platelet Volume 9.7, Neutrophils (%) (Auto) 56.3, Lymphocytes (%) (Auto) 34.0, Monocytes (%) (Auto) 8.4, Eosinophils (%) (Auto) 0.8, Basophils (%) (Auto) 0.2, Neutrophils # (Auto) 3.47, Lymphocytes # (Auto) 2.10, Monocytes # (Auto) 0.52, Eosinophils # (Auto) 0.05, Basophils # (Auto) 0.01 03/19/17 20:37 Test 03/19/17 20:37 White Blood Count 6.17 K/uL (4.8-10.8) Red Blood Count 4.39 M/uL (4.2-5.4) Hemoglobin 14.5 g/dL (12.0-16.0) Hematocrit 42.3 % (37-47) Mean Corpuscular Volume 96.4 fL (80-100) Mean Corpuscular Hemoglobin 33.0 pg (25-34) Mean Corpuscular Hemoglobin Concent 34.3 g/dl (32-36) Platelet Count 180 K/uL (130-400) Mean Platelet Volume 9.7 fL (7.4-10.4) Neutrophils (%) (Auto) 56.3 % Lymphocytes (%) (Auto) 34.0 % Monocytes (%) (Auto) 8.4 % Eosinophils (%) (Auto) 0.8 % Basophils (%) (Auto) 0.2 % Neutrophils # (Auto) 3.47 K/uL (1.4-6.5) Lymphocytes # (Auto) 2.10 K/uL (1.2-3.4) Monocytes # (Auto) 0.52 K/uL (0.11-0.59) Eosinophils # (Auto) 0.05 K/uL (0-0.5) Basophils # (Auto) 0.01 K/uL (0-0.2) RDW Standard Deviation 47.2 fL (36.4-46.3) RDW Coefficient of Variation 13.3 % (11.5-14.5) Immature Granulocyte % (Auto) 0.3 % Immature Granulocyte # (Auto) 0.02 K/uL (0.00-0.02) Anion Gap 7.0 mmol/L (3-11) Est Creatinine Clear Calc Drug Dose 153.9 ml/min Estimated GFR () 135.5 Estimated GFR (Non- 116.9 BUN/Creatinine Ratio 16.8 (10-20) Calcium Level 8.7 mg/dl (8.5-10.1) Total Bilirubin 0.8 mg/dl (0.2-1) Direct Bilirubin 0.1 mg/dl (0-0.2) Aspartate Amino Transf (AST/SGOT) 43 U/L (15-37) Alanine Aminotransferase (ALT/SGPT) 54 U/L (12-78) Alkaline Phosphatase 87 U/L (45-117) Total Protein 6.7 gm/dl (6.4-8.2) Albumin 3.7 gm/dl (3.4-5.0) Laboratory results per my review. Medications Administered Medications (Trade) Dose Ordered Sig/Herbert Route Start Time Stop Time Status Last Admin Dose Admin Ketorolac Tromethamine (Toradol Inj) 30 mg NOW STAT IV 03/19/17 20:20 03/19/17 20:29 DC 03/19/17 20:20 30 MG Cyclobenzaprine HCl (Flexeril Tab) 10 mg NOW STAT PO 03/19/17 20:20 03/19/17 20:29 DC 03/19/17 20:20 10 MG ED Course 2008: Past medical records reviewed. The patient was evaluated in room B5. A complete history and physical examination was performed. 2020: Ordered Flexeril 10 mg PO and Toradol 30 mg IV 2238: I reassessed the patient at this time. She is feeling better and resting comfortably. I discussed the results and treatment plan with the patient. I answered all pertaining questions that she had. She expressed understanding and verbalized agreement. The patient will be discharged home. Medical Decision The patient is a 42 year old female who presents to the ED with complaints of rectal pain. Differentials include muscular neck pain, meningitis, dental abscess, radiculopathy, rectal abscess, diverticulitis, colitis, and trauma. This patient was evaluated and appeared to be in no significant distress. IV access was obtained and laboratory work was drawn. The patient was medicated with IV Toradol and oral Flexeril. I suspect the neck discomfort is muscular in origin. There is no swelling or erythema to raise concern for infectious etiology. Laboratory work reveals a normal white blood cell count, normal H&H. Patient's rectal exam is normal. I do not think that imaging is warranted this evening. On reevaluation the patient was feeling improved. I suspect the patient is having some changes in her stools related to 2 separate courses of antibiotics recently. She denies diarrhea. Patient will follow-up with her physician for reevaluation. She was discharged with a prescription for Flexeril. She will return to the ER for worsening of symptoms or any medical concerns. Medication Reconcilliation Current Medication List: was personally reviewed by me Blood Pressure Screening Patient's blood pressure: Elevated blood pressure Blood pressure disposition: Elevated BP felt to be situational Impression Primary Impression: Cervical paraspinal muscle spasm Additional Impression: Mucus in stool Scribe Attestation The scribe's documentation has been prepared under my direction and personally reviewed by me in its entirety. I confirm that the note above accurately reflects all work, treatment, procedures, and medical decision making performed by me. Departure Information Dispostion Home / Self-Care Prescriptions Cyclobenzaprine Hcl (FLEXERIL) 5 Mg Tab 5 MG PO TID Y for Muscle Spasms for 7 Days, #21 TAB Prov: Rachel Us M.D. 03/19/17 Referrals No Doctor, Assigned (PCP) Forms HOME CARE DOCUMENTATION FORM, IMPORTANT VISIT INFORMATION, WORK / SCHOOL INSTRUCTIONS Patient Instructions My [facility] [employer] Additional Instructions Diagnosis: Left neck spasm, mucousy stools Flexeril 5 mg 3 times daily as needed for muscular spasm. Ibuprofen 600 mg every 6 hours as needed for pain with food. Warm compresses and gentle stretching. Follow-up with dentistry as previously instructed. Follow-up with your physician this week for reevaluation. Problem Qualifiers
[2017-03-19 20:48] LABS: BASO % 0.2 %; BASO ABS # 0.01 K/uL (0-0.2); EOS % 0.8 %; EOS ABS # 0.05 K/uL (0-0.5); HEMATOCRIT 42.3 % (37-47); HEMOGLOBIN 14.5 g/dL (12.0-16.0); IG# 0.02 K/uL (0.00-0.02); MEAN CELL VOLUME 96.4 fL (80-100); MEAN CORPUSCULAR HGB CONC 34.3 g/dl (32-36); MEAN PLATELET VOLUME 9.7 fL (7.4-10.4); MONO % 8.4 %; MONO ABS # 0.52 K/uL (0.11-0.59); NEUT % 56.3 %; NEUT ABS # 3.47 K/uL (1.4-6.5); PLATELET COUNT 180 K/uL (130-400); RED CELL DISTRIBUTION WIDTH CV 13.3 % (11.5-14.5); RED CELL DISTRIBUTION WIDTH SD 47.2 fL (36.4-46.3); WHITE BLOOD COUNT 6.17 K/uL (4.8-10.8)
[2017-03-19 21:08] LABS: ALBUMIN 3.7 gm/dl (3.4-5.0); CALCIUM 8.7 mg/dl (8.5-10.1); CREATININE 0.51 mg/dl (0.60-1.20); POTASSIUM 3.8 mmol/L (3.5-5.1)
[2017-03-19 21:10] LABS: TOTAL PROTEIN 6.7 gm/dl (6.4-8.2)
[2017-03-19] MEDS ORDERED: CYCL5TAB PO (22:36)
[2017-03-19 22:45] VITALS: BP 134/76; PULSE 67; O2SAT 98
== END 2017-03-19 22:47 | disposition home or self-care (01) ==
LOC: C.EDB 19:47
DX: M62.838 Other muscle spasm (principal); R19.5 Other fecal abnormalities; F17.210 Nicotine dependence, cigarettes, uncomplicated; J45.909 Unspecified asthma, uncomplicated; F31.9 Bipolar disorder, unspecified; K21.9 Gastro-esophageal reflux disease without esophagitis; B19.20 Unspecified viral hepatitis C without hepatic coma; Z90.49 Acquired absence of other specified parts of digestive tract; Z83.3 Family history of diabetes mellitus; Z80.9 Family history of malignant neoplasm, unspecified; Z84.1 Family history of disorders of kidney and ureter; Z79.899 Other long term (current) drug therapy

== ENCOUNTER 2017-09-29 20:36 | Emergency (ER) | payer OTHER ==
[~2017-09-29] VITALS: Ht 170.2 cm; Wt 84.3 kg
[~2017-09-29 20:36] MED LIST changes: +ACET-1047 OR; -ACET-1256 PO; +CLC100 PO; -ESCI1TAB6 PO; -IBUP-103 PO; +IBUP-1450 PO; -LXP10 PO; +MTR600X PO; +MYL80 PO; +OXYC-57 PO; -OXYC1TAB3 PO; +SIME80CH PO; -VNTHFA/IN INH
[2017-09-29 20:43] VITALS: TEMP 36.8; Ht 170.2 cm; Wt 84.3 kg
[2017-09-29 20:47] VITALS: O2SAT 95
[2017-09-29] MEDS ORDERED: LXP10 PO (21:18)
[2017-09-29] MEDS ORDERED: VNTHFA/IN INH (21:18)
[2017-09-29] MEDS ORDERED: ONDANSETRON INJ 2 MG/ML 2 ML VIAL IV STA (21:23)
[2017-09-29] MEDS ORDERED: SODIUM CHLORIDE 0.9% 1000ML 1,000 ML IV STA (21:23)
[2017-09-29] MEDS ORDERED: SULF800T23 PO (21:29)
[2017-09-29] MEDS ORDERED: DOCU-94 PO (21:29)
[2017-09-29] MEDS ORDERED: SIME1CAP11 PO (21:29)
[2017-09-29] MEDS ORDERED: ACET-1693 PO (21:29)
[2017-09-29] MEDS ORDERED: MoRPHine SULFATE 4 MG/ML 1 ML CARP\\VIAL IV PRN (21:30)
--- NOTE | 2017-09-29 21:33 | EMERGENCY ROOM VISIT NOTE ---
History Report prepared by Sveta: Kamlesh Sorensen Under the Supervision of: Dr. Santos Joaquin D.O. First contact with patient: 20:59 Chief Complaint: VAGINAL BLEEDING Stated Complaint: AB CRAMPING, VAG BLEEDING History of Present Illness The patient is a 42 year old female who presents to the Emergency Room with complaints of constant and severe vaginal bleeding that began about 30 minutes prior to arrival. The patient states that she noticed a large amount in the toilet bowl after attempting to urinate this evening. She adds that blood "filled the whole toilet." The patient notes that she had a hysterectomy 2 weeks ago due to persistent vaginal bleeding. She also complains of abdominal "cramping" and "sharp" sensations last night. Source of History: patient Onset: 30 minutes prior to arrival Position: other () Symptom Intensity: "filled the whole toilet" Quality: other (Vaginal Bleeding) Timing: constant Associated Symptoms: + abdominal pain Review of Systems See HPI for pertinent positives & negatives. A total of 10 systems reviewed and were otherwise negative. Past Medical & Surgical Medical Problems: (1) Abdominal pain (2) ASTHMA, UNSPECIFIED (3) BIPOLAR DISORDER, UNSPECIFIED (4) Bronchitis (5) Bronchitis (6) ESOPHAGEAL REFLUX (7) Fall due to slipping on ice or snow (8) HEADACHE (9) Hepatitis C (10) Influenza B (11) Influenza B (12) Low back pain (13) Lumbar contusion (14) Migraine headache (15) Nausea & vomiting (16) Ovarian cyst (17) PERSONAL HISTORY OF PEPTIC ULCER DISEASE (18) Pharyngitis (19) Right ovarian cyst (20) Right ovarian cyst (21) Sore throat (22) Throat pain in adult (23) URI, acute (24) Work related injury Surgical Problems: (1) Cholecystectomy Family History Diabetes mellitus FH: cancer Kidney disease Kidney stones Social History Smoking Status: Current Every Day Smoker Alcohol Use: none Marital Status: single Housing Status: lives alone Occupation Status: employed Current/Historical Medications Scheduled Docusate Sodium (Colace), 1 CAP PO BID Escitalopram Oxalate (Escitalopram Oxalate), 15 MG PO QAM Lamotrigine (Lamictal), 75 MG PO BID Montelukast Sodium (Singulair), 10 MG PO QPM Omeprazole (Prilosec), 20 MG PO QAM Simethicone (Simethicone), 180 MG PO PRN UD Sulfa/Trimethoprim (Bactrim Ds 800MG/160MG), 1 TAB PO BID Scheduled PRN Acetaminophen Tab (Tylenol), 650 MG PO Q4 PRN for Pain Albuterol Hfa (Ventolin Hfa), 2 PUFFS INH QID PRN for Shortness of Breath Ibuprofen (Motrin), 600 MG PO UD PRN for Pain Allergies Coded Allergies: Gabapentin (Verified Allergy, Unknown, Nausea/Vomiting, 09/15/17) Latex1 -Allergic Contact Dermititis (Verified Allergy, Unknown, RASH, 09/15) Penicillins (Verified Allergy, Unknown, N/V, 09/15/17) Tramadol (Verified Adverse Reaction, Intermediate, N/V, 09/15/17) Propoxyphene (Verified Adverse Reaction, Mild, NAUSEA AND VOMITING, ) Physical Exam Vital Signs Date Time Temp Pulse Resp B/P (MAP) Pulse Ox O2 Delivery O2 Flow Rate FiO2 09/29/17 23:39 78 20 138/72 98 09/29/17 22:16 71 20 106/62 98 Room Air 09/29/17 20:47 95 Room Air 09/29/17 20:47 89 09/29/17 20:43 36.8 91 20 115/78 95 Room Air Physical Exam GENERAL: Patient is awake, alert, and in no acute distress. Patient is resting comfortably and showing no signs of anxiety EYES: The conjunctivae are clear. The pupils are round and reactive. EARS, NOSE, MOUTH AND THROAT: The nose is without any evidence of any deformity. Mucous membranes are moist. Tongue is midline NECK: The neck is nontender and supple. RESPIRATORY: Normal respiratory effort is noted. There is no evidence of wheezing rhonchi or rales to auscultation. CARDIOVASCULAR: Regular rate and rhythm noted. There no murmurs rubs or gallops normal S1 normal S2. There are several recent laparoscopic surgical sites noted, no appearance of infection. GASTROINTESTINAL: The abdomen is soft, but mildly distended. Bowel sounds are present in all quadrants. Abdomen is nontender. MUSCULOSKELETAL/EXTREMITIES: There is no evidence of gross deformity. Full range of motion is noted in the hips and shoulders. SKIN: There is no obvious evidence of any rash. There are no petechiae, pallor or cyanosis noted. NEUROLOGIC: Patient is awake alert and oriented x3. Medical Decision & Procedures Laboratory Results 09/29/17 21:44 Red Blood Count 4.17, Mean Corpuscular Volume 95.2, Mean Corpuscular Hemoglobin 32.9, Mean Corpuscular Hemoglobin Concent 34.5, Mean Platelet Volume 9.6, Neutrophils (%) (Auto) 72.1, Lymphocytes (%) (Auto) 15.2, Monocytes (%) (Auto) 9.6, Eosinophils (%) (Auto) 2.7, Basophils (%) (Auto) 0.2, Neutrophils # (Auto) 3.76, Lymphocytes # (Auto) 0.79, Monocytes # (Auto) 0.50, Eosinophils # (Auto) 0.14, Basophils # (Auto) 0.01 09/29/17 21:44 Test 09/29/17 21:44 09/29/17 21:50 White Blood Count 5.21 K/uL (4.8-10.8) Red Blood Count 4.17 M/uL (4.2-5.4) Hemoglobin 13.7 g/dL (12.0-16.0) Hematocrit 39.7 % (37-47) Mean Corpuscular Volume 95.2 fL (80-100) Mean Corpuscular Hemoglobin 32.9 pg (25-34) Mean Corpuscular Hemoglobin Concent 34.5 g/dl (32-36) Platelet Count 218 K/uL (130-400) Mean Platelet Volume 9.6 fL (7.4-10.4) Neutrophils (%) (Auto) 72.1 % Lymphocytes (%) (Auto) 15.2 % Monocytes (%) (Auto) 9.6 % Eosinophils (%) (Auto) 2.7 % Basophils (%) (Auto) 0.2 % Neutrophils # (Auto) 3.76 K/uL (1.4-6.5) Lymphocytes # (Auto) 0.79 K/uL (1.2-3.4) Monocytes # (Auto) 0.50 K/uL (0.11-0.59) Eosinophils # (Auto) 0.14 K/uL (0-0.5) Basophils # (Auto) 0.01 K/uL (0-0.2) RDW Standard Deviation 44.4 fL (36.4-46.3) RDW Coefficient of Variation 12.8 % (11.5-14.5) Immature Granulocyte % (Auto) 0.2 % Immature Granulocyte # (Auto) 0.01 K/uL (0.00-0.02) Prothrombin Time 10.2 SECONDS (9.0-12.0) Prothromb Time International Ratio 1.0 (0.9-1.1) Activated Partial Thromboplast Time 27.7 SECONDS (21.0-31.0) Partial Thromboplastin Ratio 1.1 Anion Gap 5.0 mmol/L (3-11) Est Creatinine Clear Calc Drug Dose 109.7 ml/min Estimated GFR () 116.1 Estimated GFR (Non- 100.2 BUN/Creatinine Ratio 12.8 (10-20) Calcium Level 8.4 mg/dl (8.5-10.1) Total Bilirubin 0.5 mg/dl (0.2-1) Aspartate Amino Transf (AST/SGOT) 84 U/L (15-37) Alanine Aminotransferase (ALT/SGPT) 79 U/L (12-78) Alkaline Phosphatase 180 U/L (45-117) Total Protein 6.5 gm/dl (6.4-8.2) Albumin 3.1 gm/dl (3.4-5.0) Globulin 3.4 gm/dl (2.5-4.0) Albumin/Globulin Ratio 0.9 (0.9-2) Human Chorionic Gonadotropin, Qual NEG (NEG) Urine Color DK YELLOW Urine Appearance CLEAR (CLEAR) Urine pH 6.0 (4.5-7.5) Urine Specific [place] 1.020 (1.000-1.030) Urine Protein TRACE (NEG) Urine Glucose (UA) NEG (NEG) Urine Ketones NEG (NEG) Urine Occult Blood 3+ (NEG) Urine Nitrite NEG (NEG) Urine Bilirubin NEG (NEG) Urine Urobilinogen NEG (NEG) Urine Leukocyte Esterase NEG (NEG) Urine WBC (Auto) 1-5 /hpf (0-5) Urine RBC (Auto) >30 /hpf (0-4) Urine Hyaline Casts (Auto) 1-5 /lpf (0-5) Urine Epithelial Cells (Auto) 20-30 /lpf (0-5) Urine Bacteria (Auto) NEG (NEG) Laboratory results per my review. Medications Administered Medications (Trade) Dose Ordered Sig/Herbert Route Start Time Stop Time Status Last Admin Dose Admin Ondansetron HCl (Zofran Inj) 4 mg NOW STAT IV 09/29/17 21:23 09/29/17 21:24 DC 09/29/17 21:32 4 MG Sodium Chloride 1,000 ml @ 999 mls/hr Q1H1M STAT IV 09/29/17 21:23 09/29/17 22:23 DC 09/29/17 21:32 999 MLS/HR Morphine Sulfate (MoRPHine SULFATE INJ) 4 mg Q15M PRN IV 09/29/17 21:30 09/30/17 00:40 DC 09/29/17 21:32 4 MG Oxycodone HCl (Roxicodone Immediate Rel 5MG Home Pack) 1 homepack UD ONCE PO 09/29/17 23:30 09/29/17 23:31 DC 09/29/17 23:30 1 HOMEPACK ED Course 3: The patient was evaluated in room C4. A complete history and physical examination were performed. 2122: Ordered Sodium Chloride 1000 mL @ 999 mL/hr IV, Zofran 4 mg IV. 2129: Ordered Morphine Sulfate 4 mg IV. 2316: I checked on the patient at this time. She is not bleeding anymore. She is feeling better after Morphine. 2330: Ordered Oxycodone HCl 1 homepack PO. 2326: I discussed the case with Dr. Santi POZO. Suggests follow-up as outpatient. The patient will be discharged home. Medical Decision Prior records/ancillary studies reviewed. Differential diagnosis: Etiologies such as ectopic , dysfunction uterine bleeding, bleeding dyscrasia, trauma, infection, as well as others were entertained. The patient is a 42-year-old female who is status post hysterectomy who presented to the emergency department with vaginal bleeding. She had one episode of vaginal bleeding which was brisk but it seems to have spontaneously slowed down on its own. I discussed patient's laboratory and radiographic studies with her. She was treated with IV fluids IV pain medicine and IV Zofran. On subsequent reevaluation she was feeling much better. I discussed her case with the on-call [facility] [employer] physician. They have agreed to see the patient in follow-up with the patient does have a scheduled follow-up appointment this week she was encouraged to keep this appointment but return to the emergency department immediately if symptoms change worsen or the need arises. Medication Reconcilliation Current Medication List: was personally reviewed by me Blood Pressure Screening Patient's blood pressure: Normal blood pressure Consults Time Called: 2320 Consulting Physician: Dr. Santi POZO Returned Call: [phone] I discussed the case with Dr. Santi POZO. Suggests follow-up as outpatient. Impression Primary Impression: Post-op bleeding Additional Impression: Abdominal pain Scribe Attestation The scribe's documentation has been prepared under my direction and personally reviewed by me in its entirety. I confirm that the note above accurately reflects all work, treatment, procedures, and medical decision making performed by me. Departure Information Dispostion Home / Self-Care Referrals Mar Ch D.O. (PCP) Forms HOME CARE DOCUMENTATION FORM, IMPORTANT VISIT INFORMATION, WORK / SCHOOL INSTRUCTIONS Patient Instructions My [facility] Additional Instructions Continue all medications as prescribed. Rest and avoid any strenuous activity or heavy lifting. Call your [employer] doctor in the morning to schedule a follow- up appointment. Return to the emergency department immediately if symptoms change worsen or the need arises. Problem Qualifiers Primary Impression: Post-op bleeding Surgical complication system/body Area: genitourinary Procedure type: genitourinary Qualified Codes: N99.820 - Postprocedural hemorrhage of a genitourinary system organ or structure following a genitourinary system procedure Additional Impression: Abdominal pain Abdominal location: lower abdomen, unspecified Qualified Codes: R10.30 - Lower abdominal pain, unspecified
[2017-09-29 22:01] LABS: BASO % 0.2 %; BASO ABS # 0.01 K/uL (0-0.2); EOS % 2.7 %; EOS ABS # 0.14 K/uL (0-0.5); HEMATOCRIT 39.7 % (37-47); HEMOGLOBIN 13.7 g/dL (12.0-16.0); IG# 0.01 K/uL (0.00-0.02); LYMPH % 15.2 %; LYMPH ABS # 0.79 K/uL (1.2-3.4); MEAN CELL VOLUME 95.2 fL (80-100); MEAN CORPUSCULAR HEMOGLOBIN 32.9 pg (25-34); MEAN CORPUSCULAR HGB CONC 34.5 g/dl (32-36); MEAN PLATELET VOLUME 9.6 fL (7.4-10.4); MONO % 9.6 %; NEUT % 72.1 %; NEUT ABS # 3.76 K/uL (1.4-6.5); PLATELET COUNT 218 K/uL (130-400); RED CELL DISTRIBUTION WIDTH CV 12.8 % (11.5-14.5); RED CELL DISTRIBUTION WIDTH SD 44.4 fL (36.4-46.3); WHITE BLOOD COUNT 5.21 K/uL (4.8-10.8)
[2017-09-29 22:10] LABS: PTT PATIENT 27.7 SECONDS (21.0-31.0)
[2017-09-29 22:25] LABS: ALBUMIN 3.1 gm/dl (3.4-5.0); CALCIUM 8.4 mg/dl (8.5-10.1); CREATININE 0.73 mg/dl (0.60-1.20); POTASSIUM 4.2 mmol/L (3.5-5.1); TOTAL PROTEIN 6.5 gm/dl (6.4-8.2)
[2017-09-29] MEDS ORDERED: OXYCODONE IR HOME PACK PO ONE (23:30)
[2017-09-29 23:39] VITALS: BP 138/72; PULSE 78; O2SAT 98
== END 2017-09-29 23:40 | disposition home or self-care (01) ==
LOC: EDBD 20:36 → C.EDC 20:38
DX: N99.820 Postprocedural hemorrhage of a genitourinary system organ or structure following a genitourinary system procedure (principal); R10.30 Lower abdominal pain, unspecified; J45.909 Unspecified asthma, uncomplicated; F31.9 Bipolar disorder, unspecified; K21.9 Gastro-esophageal reflux disease without esophagitis; F17.210 Nicotine dependence, cigarettes, uncomplicated; Z79.899 Other long term (current) drug therapy; Z91.040 Latex allergy status; Z88.0 Allergy status to penicillin; Z88.5 Allergy status to narcotic agent; Z88.8 Allergy status to other drugs, medicaments and biological substances